=== PATIENT | male | born 1990 | race Caucasian/White ===

== ENCOUNTER 2018-06-28 15:49 | Emergency (ER) | payer OTHER ==
[~2018-06-28] VITALS: Ht 172.7 cm; Wt 81.6 kg
[2018-06-28 16:06] VITALS: BP 153/91; Ht 172.7 cm; Wt 81.6 kg
[2018-06-28 17:48] LABS: microscopic required? NO
[2018-06-28 18:09] LABS: UA SPECIFIC GRAVITY <=1.005 (1.005-1.035); urine erythrocyte NEGATIVE (NEGATIVE)
== END 2018-06-28 19:08 | disposition home or self-care (01) ==
LOC: ED 15:49
PROVIDERS: Emergency Medicine
DX: M25.551 Pain in right hip (principal); M54.5 Low back pain; R39.15 Urgency of urination; R35.0 Frequency of micturition
CPT/HCPCS: 82962